=== PATIENT | female | born 1985 | race Two or more races ===

== ENCOUNTER 2024-06-18 21:17 | Inpatient (IN) | payer OTHER ==
[~2024-06-18] VITALS: Ht 154.9 cm; Wt 59.0 kg
--- NOTE | 2024-06-18 21:23 | NUR ---
PTE ALERTA Y ORIENTADA X3 QUIEN REFIERE VENIR DE [place] YA QUE LE INDICARON HEMOGLOBINA EN 5.5
[2024-06-18] MEDS ORDERED: IRON325 MG PO (21:24)
[2024-06-18] MEDS ORDERED: 0.9 % SODIUM CHLORIDE 1,000 ML IV SCH (22:15)
--- NOTE | 2024-06-18 23:56 | NUR ---
SE EDUCA A PACIENTE SOBRE INDICACIONES MEDICAS. SE COLECTAN MUESTRAS DE LAB. SE OBTIENE ACCESO VENOSO PARA ADMINISTRACION
--- NOTE | 2024-06-19 00:15 | NUR ---
SE NOTIFICA SONOGRAMA A MS. JAIN
[2024-06-19 00:19] LABS: MEAN CELL VOLUME 78.1 fL (80.00-100.00); MEAN CORPUSCULAR HGB CONC 33.8 g/dl (32.0-36.0); PLATELET COUNT 270 K/uL (150-450); RED BLOOD COUNT 2.13 M/uL (4.00-6.00); RED CELL DISTRIBUTION WIDTH 15.5 % (11.5-14.5)
[2024-06-19 00:22] LABS: HEMOGLOBIN 5.6 g/dL (12.0-15.00); MEAN CORPUSCULAR HEMOGLOBIN 26.2 pg (27.00-32.0)
[2024-06-19 00:23] LABS: HEMATOCRIT 16.7 % (36.0-45.00)
[2024-06-19 00:31] LABS: INR 1.05; PARTIAL THROMBOPLASTIN TIME 23.6 SECONDS (22.0-34.0); PROTHROMBIN TIME 11.4 SECONDS (9.0-11.5)
[2024-06-19 00:35] LABS: ALBUMIN 3.5 gm/dL (3.4-5.0); BILIRUBIN TOTAL 0.24 mg/dL (0.3-1.2); CALCIUM 8.5 mg/dL (8.5-10.1); CREATININE SERUM 0.59 mg/dL (0.55-1.02); GFR 115.33; GLOBULINA 3.2 G/DL (2.4-3.5); POTASSIUM 3.58 mEq/L (3.5-5.1); TOTAL PROTEIN 6.7 gm/dL (6.4-8.2)
--- NOTE | 2024-06-19 01:56 | NUR ---
SE HUBERT TUBOS MUESTRAS PILOTOS A LAS 12:47AM PARA REQUISION DE COMPONENTES SANGUINEO. SE ORIENTA A LA PACIENTE SOBRE EL PROCEDIMIENTO, SE ENTREGA Y FIRMA CONSETIMIENTO DE AUTORIZACION PARA RECIBIR LA TRANSFUSION. SE LLEVAN TUBOS PILOTOS A LAS 1:02AM, SE RECIBE Y SE ENTREGA A DARCI DE LABORATORIO.
--- NOTE | 2024-06-19 08:16 | NUR ---
SE RECIBE PACIENTE FEMINA ALERTA Y ORIENTADA EN TIEMPO, LUGAR Y PERSONA A QUIEN SE LE ORIENTA SOBRE CONTINUIDAD DE TRATAMIENTO Y REFIERE ENTENDER, SE OBSERVA PACIENTE EN CAMA, BARANDAS ELEVADAS Y EN RICE NIVEL MAS BAJO POR PRECAUCION A CAIDAS, PACIENTE CON BUEN PATRON RESPIRATORIO A ROOM AIR. SE OBSERVA CON DOS VENOPUNCIONES EN BRAZO DERECHO LAS CUALES SE ENCUENTRAN PATENTES, LIBRES DE EDEMA Y ERITEMA, RECIBIENDO IV FLUIDS DARINEL ORDEN. PACIENTE CONSULTADA EN ESPERA DE EVALUACION Y PENDIENTE 3 UNIDADES DE PRBC'S PENDIENTES. SE MANTIENE BAJO OBSERVACION POR CAMBIOS EN RICE CONDICION.
[2024-06-19] MEDS ORDERED: ESTROGENS, CONJUGATED 25 MG in DEXTROSE 5 % IN WATER 50 ML IV SCH (09:00)
[2024-06-19] MEDS ORDERED: ESTROGENS, CONJUGATED 25 MG VIAL ONE (09:40)
[2024-06-19 12:10] VITALS: BP 95/68; O2SAT 100
[2024-06-19 12:57] VITALS: BP 96/61
[2024-06-19 16:00] VITALS: BP 96/61
[2024-06-20 00:17] VITALS: BP 95/55
[2024-06-20 06:56] LABS: HEMATOCRIT 29.3 % (36.0-45.00); MEAN CELL VOLUME 83.4 fL (80.00-100.00); MEAN CORPUSCULAR HGB CONC 33.9 g/dl (32.0-36.0); PLATELET COUNT 213 K/uL (150-450); RED BLOOD COUNT 3.52 M/uL (4.00-6.00); RED CELL DISTRIBUTION WIDTH 15.8 % (11.5-14.5)
[2024-06-20 07:07] LABS: HEMOGLOBIN 9.9 g/dL (12.0-15.00); MEAN CORPUSCULAR HEMOGLOBIN 28.1 pg (27.00-32.0)
[2024-06-20 07:38] VITALS: BP 93/57
[2024-06-20] MEDS ORDERED: DEXTROSE 5%-WATER 50ML IV.SOLN ONE (08:05)
[2024-06-20 17:00] VITALS: BP 91/56
[2024-06-21 00:14] VITALS: BP 108/65
[2024-06-21 08:26] VITALS: BP 102/67
[2024-06-21 17:00] VITALS: BP 99/64
[2024-06-22] VITALS: BP 93/58
[2024-06-22] MEDS ORDERED: MAXFE CAPLET1 EAC1 PO (08:54)
[2024-06-22] MEDS ORDERED: SPRINTEC 28 DA1 EACH PO (08:54)
[2024-06-22 10:40] VITALS: BP 101/65
== END 2024-06-22 09:19 | disposition home or self-care (01) | DRG 812 ==
LOC: ER 21:18 → OB/GYN 06-19 11:18
PROVIDERS: General Practice; ADMIT Obstetrics & Gynecology; ATTEND Obstetrics & Gynecology
PROC: 30233N1 Transfusion of Nonautologous Red Blood Cells into Peripheral Vein, Percutaneous Approach (ICD-10-PCS; principal; 2024-06-19)
DX: D64.9 Anemia, unspecified (principal); N93.9 Abnormal uterine and vaginal bleeding, unspecified; N92.0 Excessive and frequent menstruation with regular cycle